=== PATIENT | female | born 1990 | race Two or more races ===

== ENCOUNTER 2018-03-31 01:45 | Emergency (ER) | payer BC, SELFPAY ==
[2018-03-31 01:46] VITALS: BP 133/73; PULSE 93; RESP 20; TEMP 36.7; O2SAT 100; BMI 32.5
--- NOTE | 2018-03-31 02:34 | ED.DCSUM_ITS ---
- ER Visit Summary Date of Service: 03/31/18 Chief Complaint: Vaginal bleeding and 14 weeks History of Present Illness: The patient is a 28 F no senior past medical history. Reportedly approximately 14 weeks . Ab0. Sees an OB/ [employer] [employer] ATTENDANT physician in [place]. States that she did have a pelvic ultrasound at 8 weeks and 1 day and everything looked fine at that time. Tonight she noticed some mild vaginal bleeding. Denies any discharge. No dysuria. No fever. She has not had any bleeding during the entire until today. She states her blood type is AB+. Physical Examination: Well-appearing female vital signs are stable and afebrile. Blood pressure 133/73. H EENT exam unremarkable. Neck nontender. Lungs clear to auscultation bilaterally. Heart regular rate and rhythm no murmur. Abdomen soft and nondistended. Normal bowel sounds. Nontender gravid uterus. No peritoneal signs. Moving all 4 extremities. Calves nontender without edema or cords. Neurologically she is awake and alert with no focal motor deficits. Pelvic exam showed unremarkable external genitalia. On speculum exam there is some old blood that was brown. No active bleeding. No bright red blood. No clots. The office was closed. She had no significant uterine or adnexal tenderness. Female nurse was present during the pelvic exam. Test Results: heart tones of 130. Quantitative hCG of 39,219. ABO Rh blood type of AB+. Emergency Department Course and Treatment: patient at 14 weeks with vaginal bleeding. Treatment Plan: Patient will be discharged. She is instructed to follow-up with her [place] ROLL CARRIER this week. Disposition: Discharge Impression: Acute vaginal bleeding and 14 weeks Threatened miscarriage This note was generated with [employer] dictation software. It may contain incorrect words, spelling, and punctuation that were not noted in review of the chart prior to signing ED Disposition - Plan for ED Patient: Chief Complaint: Vag Bld, Preg Referrals: [facility] Doctor,Out of [NON-STAFF] -
[2018-03-31 04:59] VITALS: BP 94/48; PULSE 89; RESP 16; O2SAT 99
--- NOTE | 2018-03-31 05:20 | DCINST.ED_ITS ---
ED Disposition - Plan for ED Patient: Disposition: Home or Assisted Living Chief Complaint: Vag Bld, Preg Instructions: ED Miscarriage Poss Referrals: [facility] Doctor,Out of [NON-STAFF] - As soon as possible Additional Instructions: Call and follow-up with your [place] [facility]IST[facility] PRODUCE MANAGER as soon as possible. Anytime there is vaginal bleeding with there is a possible concern for a threatened miscarriage. This will need further evaluation. No heavy lifting or sexual intercourse until seen in follow-up.
== END 2018-03-31 05:27 | disposition home or self-care (01) ==
PROVIDERS: Emergency Provider Emergency Medicine
DX: O20.0 Threatened abortion (principal); Z3A.14 14 weeks gestation of pregnancy
CPT/HCPCS: 84702; 86900; 99285; A4216

== ENCOUNTER → 2018-07-13 09:50 | Outpatient (CLI) | payer BC, SELFPAY ==
[2018-07-13 11:19] LABS: Absolute Lymphocyte Count 1.18 X10^3/ul (0.83-4.51); Absolute Neutrophil Count 7.7 X10^3/uL (2.0-7.7); Basophil# 0.01 X10^3/uL; Basophil% 0.1 % (0-1); Eosinophil# 0.07 X10^3/uL; Eosinophils% 0.7 % (0-5); Hematocrit 35.5 % (37-47); Hemoglobin 11.4 g/dl (12.0-15.0); Lymphocyte # 1.18 X10^3/ul (4.0); Lymphocyte % 12.5 % (19-41); Mean Corp Hgb Conc 32.1 g/gl (32-36); Mean Corpuscular Hgb 26.9 pg (27.0-32.0); Mean Corpuscular Volume 83.7 fL (81-99); Mean Platelet Vol. 10.2 fl (6.2-12.0); Monocyte# 0.42 X10^3/uL; Monocyte% 4.4 % (0-10); Neutrophil # 7.72 X10^3/uL (2.7-7.7); Neutrophil % 81.9 % (47-70); Platelet Count 221 K/mm3 (150-450); RBC Distribution Width CV 13.4 % (11.6-14.6); RBC Distribution Width SD 40.3 fl (35.1-43.9); Red Blood Count 4.24 M/mm3 (4.2-5.4); White Blood Count 9.4 K/mm3 (4.4-11.0)
[2018-07-13 11:20] LABS: POSITIVE COUNT NO; POSITIVE DIFFERENTIAL NO; POSITIVE MORPHOLOGY NO
[2018-07-13 11:52] LABS: Glucose Challenge Gest 1H 50g 158 mg/dL (70-140)
== END ==
DX: Z34.02 Encounter for supervision of normal first pregnancy, second trimester (principal)
CPT/HCPCS: 36415; 82950; 85025

== ENCOUNTER → 2018-07-22 09:41 | Outpatient (CLI) | payer BC, SELFPAY ==
[2018-07-22 11:40] LABS: Glucose GTT-Gestational 1 Hr 169 mg/dL (<190)
[2018-07-22 11:42] LABS: Glucose GTT-Gestation. Fasting 85 mg/dL (<105)
[2018-07-22 13:04] LABS: Glucose GTT-Gestational 2 Hr 123 mg/dL (<165)
[2018-07-22 14:27] LABS: Glucose GTT-Gestational 3 Hr 104 L (<145)
== END ==
PROVIDERS: Family Provider Family Medicine; PCP Family Medicine
DX: O99.810 Abnormal glucose complicating pregnancy (principal); Z3A.00 Weeks of gestation of pregnancy not specified
CPT/HCPCS: 36415; 82951; 82952

== ENCOUNTER → 2019-01-09 | Outpatient (CLI) | payer BC, SELFPAY ==
[2019-01-09 17:06] LABS: Bacteria 0 SEEN /hpf (None Seen); Mucous, Urine 0 SEEN /hpf (<or=2+); Red Blood Cells-Urine 0 SEEN /hpf (0-5); Squamous Epithelial Cells - UA 0 SEEN /hpf (5-10); White Blood Cells 0 SEEN /hpf (0-5)
[2019-01-09 18:01] LABS: Color, Urine Yellow (Yellow); Glucose, Dipstick Normal (Normal); Ketone-Dipstick Negative (Negative); Leukocyte Esterase-Dipstick 25 /ul (Negative); Nitrite-Dipstick Negative (Negative); Occult Blood-Urine Negative /ul (Negative); Protein-Dipstick Negative (Negative); Urine Bilirubin Dipstick Negative (Negative); Urine Clarity Clear (Clear); Urine Urobilinogen Normal (Normal)
[2019-01-09 18:10] LABS: Absolute Lymphocyte Count 2.29 X10^3/ul (0.83-4.51); Absolute Neutrophil Count 5.3 X10^3/uL (2.0-7.7); Basophil# 0.02 X10^3/uL; Basophil% 0.2 % (0-1); Eosinophil# 0.05 X10^3/uL; Eosinophils% 0.6 % (0-5); Hematocrit 39.3 % (37-47); Hemoglobin 12.6 g/dl (12.0-15.0); Lymphocyte # 2.29 X10^3/ul (4.0); Lymphocyte % 28.1 % (19-41); Mean Corp Hgb Conc 32.1 g/gl (32-36); Mean Corpuscular Hgb 25.3 pg (27.0-32.0); Mean Corpuscular Volume 78.9 fL (81-99); Mean Platelet Vol. 10.6 fl (6.2-12.0); Monocyte# 0.48 X10^3/uL; Monocyte% 5.9 % (0-10); Neutrophil # 5.29 X10^3/uL (2.7-7.7); Neutrophil % 65.1 % (47-70); Platelet Count 280 K/mm3 (150-450); RBC Distribution Width CV 14.4 % (11.6-14.6); RBC Distribution Width SD 40.3 fl (35.1-43.9); Red Blood Count 4.98 M/mm3 (4.2-5.4); White Blood Count 8.1 K/mm3 (4.4-11.0)
[2019-01-09 18:11] LABS: POSITIVE COUNT NO; POSITIVE DIFFERENTIAL NO; POSITIVE MORPHOLOGY NO
[2019-01-09 18:45] LABS: Anion Gap 6 (5-15); BUN 13 mg/dL (7-18); BUN/Creat Ratio 14.7 RATIO (10-20); Calcium,Total 8.5 mg/dL (8.5-10.1); Chloride 106 mmol/L (98-107); Creatinine, Serum 0.88 mg/dL (0.55-1.02); EST Glomerular Filtration Rate 80 mL/min (>60); Est Glom Filt Rate - Afr Amer 97 mL/min (>60); Ferritin 15 ng/mL (8-252); Glucose 90 mg/dL (74-106); Iron 52 ug/dL (50-170); Iron Binding Capacity,Total 382 ug/dL (250-450); Potassium 3.9 mmol/L (3.5-5.1); Sodium Level 136 mmol/L (136-145)
== END | disposition home or self-care (01) ==
PROVIDERS: Family Provider Family Medicine; PCP Family Medicine; Referring Provider Family Medicine; Visit Provider Family Medicine
DX: O13.9 Gestational [pregnancy-induced] hypertension without significant proteinuria, unspecified trimester (principal); D64.9 Anemia, unspecified
CPT/HCPCS: 80048; 81001; 82728; 83540; 83550; 85025

== ENCOUNTER → 2019-08-08 12:23 | Outpatient (CLI) | payer BC, SELFPAY ==
[2019-08-08 13:50] LABS: Absolute Lymphocyte Count 2.18 X10^3/uL (0.83-4.51); Absolute Neutrophil Count 5.8 X10^3/uL (2.0-7.7); Basophil# 0.02 X10^3/uL; Basophil% 0.2 % (0-1); Eosinophil# 0.15 X10^3/uL; Eosinophils% 1.7 % (0-5); Hematocrit 43.3 % (37-47); Hemoglobin 13.9 g/dL (12.0-15.0); Lymphocyte # 2.18 X10^3/ul (4.0); Lymphocyte % 25.4 % (19-41); Mean Corp Hgb Conc 32.1 g/dL (32-36); Mean Corpuscular Hgb 26.5 pg (27.0-32.0); Mean Corpuscular Volume 82.5 fL (81-99); Mean Platelet Vol. 10.2 fl (6.2-12.0); Monocyte# 0.46 X10^3/uL; Monocyte% 5.4 % (0-10); NRBC Flagged by Analyzer 0 % (0-5); Neutrophil # 5.75 X10^3/uL (2.7-7.7); Platelet Count 265 K/mm3 (150-450); RBC Distribution Width CV 13.4 % (11.6-14.6); RBC Distribution Width SD 39.8 fl (35.1-43.9); Red Blood Count 5.25 M/mm3 (4.2-5.4); White Blood Count 8.6 K/mm3 (4.4-11.0)
[2019-08-08 14:38] LABS: ALB/GLOB Ratio 0.9 RATIO (0.9-2.4); AST(SGOT) 13 U/L (15-37); Alanine Aminotransfer ALT/SGPT 40 U/L (13-56); Alkaline Phosphatase 111 U/L (45-117); Anion Gap 8 (5-15); BUN 14 mg/dL (7-18); BUN/Creat Ratio 16.6 RATIO (10-20); Calcium,Total 9.2 mg/dL (8.5-10.1); Chloride 106 mmol/L (98-107); Creatinine, Serum 0.84 mg/dL (0.55-1.02); EST Glomerular Filtration Rate 84 mL/min (>60); Est Glom Filt Rate - Afr Amer 102 mL/min (>60); Globulin 4.3 g/dL (2.2-4.2); Glucose 108 mg/dL (74-106); Magnesium 2.1 mg/dL (1.6-2.6); Protein, Total 8.3 g/dL (6.4-8.2); Sodium Level 139 mmol/L (136-145); Thyroid Stim Hormone (TSH) 0.96 uIU/mL (0.358-3.74)
[2019-08-11 18:12] LABS: Hemoglobin A1c 5.7 % (4.2-6.3)
== END ==
PROVIDERS: Family Provider Family Medicine; PCP Family Medicine; Referring Provider Family Medicine; Visit Provider Family Medicine
DX: R73.09 Other abnormal glucose (principal); R00.2 Palpitations
CPT/HCPCS: 36415; 80053; 83036; 83735; 84443; 85025

== ENCOUNTER 2019-08-25 19:51 | Emergency (ER) | payer BC, SELFPAY ==
[2019-08-18 10:58] VITALS: BMI 33.5
[2019-08-25 19:52] VITALS: BP 129/83; PULSE 87; RESP 16; TEMP 36.6; O2SAT 99; BMI 33.6
[2019-08-25 20:00] VITALS: PULSE 97; RESP 18; O2SAT 100
--- NOTE | 2019-08-25 20:04 | ED.RN ---
NO OLD EKGS IN MUSE
--- NOTE | 2019-08-25 20:10 | RAD_ITS ---
STUDY: X-RAY CHEST REASON FOR EXAM: Female, 29 years old. chest pain TECHNIQUE: Single AP portable view of the chest. COMPARISON: None. FINDINGS: The lungs are clear and expanded. There is no demonstrated pleural abnormality. Normal size heart. Normal mediastinum and andrea. Normal visualized pulmonary arteries. Normal visualized aortic arch and descending thoracic aorta. Normal visualized thoracic spine. Normal visualized ribs, clavicles, and shoulders. There is no demonstrated abnormality of the visualized soft tissue structures of the upper abdomen. RAD/Chest 1 View (Portable) IMPRESSION: Normal x-ray examination of the chest. Electronically Signed: Julio Carlton MD at 20:31 EST Tel [phone], Service support ,
--- NOTE | 2019-08-25 20:10 | EKG12_ITS ---
Test Reason : CP Blood Pressure : / mmHG Vent. Rate : 097 BPM Atrial Rate : 097 BPM P-R Int : 130 ms QRS Dur : 082 ms QT Int : 356 ms P-R-T Axes : 037 036 023 degrees QTc Int : 452 ms Normal sinus rhythm Normal ECG Confirmed by VAL PARRA MD ([id number]), map editor CEASAR ANTUNEZ ([id number]) on 08/28/2019 9:32:19 AM Referred By: DONALDO Confirmed By:VAL PARRA MD
[2019-08-25 20:19] LABS: Absolute Lymphocyte Count 1.97 X10^3/uL (0.83-4.51); Absolute Neutrophil Count 9.5 X10^3/uL (2.0-7.7); Basophil# 0.04 X10^3/uL; Basophil% 0.3 % (0-1); Eosinophil# 0.05 X10^3/uL; Eosinophils% 0.4 % (0-5); Hematocrit 41.8 % (37-47); Hemoglobin 13.6 g/dL (12.0-15.0); Lymphocyte # 1.97 X10^3/ul (4.0); Lymphocyte % 16.4 % (19-41); Mean Corp Hgb Conc 32.5 g/dL (32-36); Mean Corpuscular Hgb 26.7 pg (27.0-32.0); Mean Platelet Vol. 10.3 fl (6.2-12.0); Monocyte# 0.46 X10^3/uL; Monocyte% 3.8 % (0-10); NRBC Flagged by Analyzer 0 % (0-5); Neutrophil # 9.45 X10^3/uL (2.7-7.7); Neutrophil % 78.7 % (47-70); Platelet Count 282 K/mm3 (150-450); RBC Distribution Width CV 12.8 % (11.6-14.6); RBC Distribution Width SD 38.3 fl (35.1-43.9)
[2019-08-25] MEDS: Aspirin 81 MG TAB.CHEW 324 MG PO (20:31)
[2019-08-25 20:32] LABS: Anion Gap 6 (5-15); BUN 13 mg/dL (7-18); BUN/Creat Ratio 14.1 RATIO (10-20); Chloride 105 mmol/L (98-107); Creatinine, Serum 0.92 mg/dL (0.55-1.02); EST Glomerular Filtration Rate 76 mL/min (>60); Est Glom Filt Rate - Afr Amer 92 mL/min (>60); Estimated Creatinine Clearance 70.72 ml/min; Glucose 139 mg/dL (74-106); Potassium 3.7 mmol/L (3.5-5.1); Sodium Level 138 mmol/L (136-145)
[2019-08-25] MEDS: 0.9% Normal Saline 1,000 ML 150 ML IV (20:40)
[2019-08-25 20:50] LABS: D-Dimer Quantitative (DVT/PE) 0.73 FEU/ug/m (0.27-0.49)
--- NOTE | 2019-08-25 20:51 | CT_ITS ---
STUDY: CTA CHEST REASON FOR EXAM: Female, 29 years old. CHEST PRESSURE, SOB SINCE LAST NIGHT, PALPITATIONS, TACHYCARDIA. RADIATION DOSAGE (If Supplied By Facility): CTDIvol = ( 10.29 ) mGy, DLP = ( 455.45 ) mGycm TECHNIQUE: The examination was performed with the intravenous administration of 100 ML ISOVUE 370. Post-processing of the angiographic images was performed, with multiplanar reformation and 3D reconstruction. Individualized dose optimization techniques were used for this CT. COMPARISON: Portable chest August 25, 2019 FINDINGS: Normal enhancement of the main pulmonary artery and right and left pulmonary arteries. Normal enhancement of the bilateral peripheral pulmonary arteries. There is no demonstrated pulmonary embolism. Normal thoracic aorta and visualized great vessels. There is no demonstrated aortic dissection. Normal heart and pericardium. Normal mediastinum. Normal hilar regions. Normal visualized trachea and bronchi. The lungs are well expanded. Normal pulmonary parenchyma. Normal pleura. Normal chest wall structures. Normal osseous structures. Normal visualized upper abdomen. CT/CTA Chest W/WO Contrast IMPRESSION: Normal CTA chest examination, without a demonstrated pulmonary embolism or arterial dissection. Electronically Signed: David Disla MD at 21:24 EST , Service support ,
--- NOTE | 2019-08-25 21:48 | ED.DCSUM_ITS ---
- ER Visit Summary Date of Service: 08/25/19 Chief Complaint: [Chest pain] History of Present Illness: The patient is a 29 F presents to the emergency department discomfort that started around noon today. Patient describes a pressure goes across her shoulders. Patient just feels like she can get a full breath. Patient feels like there are some stuck in her throat at times. Patient currently being evaluated for some palpitations and is scheduled to have a Holter monitor placed tomorrow. Patient is scheduled for stress test and an echo on August 28. Patient denies recent travel or surgery. Patient did deliver a baby 11 months ago via . She has had a cold for about 2 weeks but feels like it is gotten much better. Patient's father of an RI at age 65.] Physical Examination: [HEENT-PERRLA, EOMI. Cranial nerves II through XII grossly intact. TMs clear. Mucous membranes moist. No adenopathy. Cardiovascular-regular rate and rhythm without murmur or ectopy Lungs-clear to auscultation, chest wall stable without crepitus or subcu emphysema Abdomen-normoactive bowel sounds, soft, nontender, no rebound or rigidity, no peritoneal signs. Extremities-intact ?4, normal range of motion, normal pulses, atraumatic] Test Results: [EKG obtained showed a sinus rhythm with a ventricular rate of 97 bpm with no acute ST segment changes. CBC with differential showed a white count 12.0, hemoglobin 13.6, hematocrit 42, platelets 282. Chemistries unremarkable. Troponin is less than 0.15. Chest x-ray was normal. CTA of the chest obtained after an elevated d-dimer was negative for PE or dissection.] Emergency Department Course and Treatment: [Patient received fused any and high anxiety medication in the emergency department. On arrival she was placed on a automobile repossessor and given normal saline.] Treatment Plan: [For further discussion with patient it was decided that she would try PRN Ativan. Her hesitation was that she is still nursing the child at night. Patient was advised not to nurse and to pump and dump for 12 hours after taking the Ativan.] I suspect some of her symptoms may be anxiety related. Patient to keep her appointments with cardiology for all the further testing to be performed. I do not feel patient is having an acute coronary syndrome. Disposition: [Discharged home in stable condition.] Impression: [Chest pain-etiology uncertain] This note was generated with [employer] dictation software. It may contain incorrect words, spelling, and punctuation that were not noted in review of the chart prior to signing ED Disposition - Plan for ED Patient: Referrals: Cong Zaragoza MD [Primary Care Provider] -
--- NOTE | 2019-08-25 21:56 | ED.DEP ---
ED Disposition - Plan for ED Patient: Instructions: CHEST PAIN, Uncertain Cause Prescriptions: Lorazepam [Ativan] 1 mg PO TID PRN #10 tab PRN Reason: Anxiety Prescription Printed Referrals: Cong Zaragoza MD [Primary Care Provider] - 3-5 Days
[2019-08-25 22:09] VITALS: BP 113/71; PULSE 91; RESP 17; O2SAT 99
== END 2019-08-25 22:11 | disposition home or self-care (01) ==
LOC: ED 20:20
PROVIDERS: Emergency Provider Emergency Medicine; Family Provider Family Medicine; PCP Family Medicine
DX: R07.9 Chest pain, unspecified (principal); R00.2 Palpitations
CPT/HCPCS: 71045; 71275; 80048; 84484; 85025; 85379; 93005; 96360; 99285; J7030; Q9967; A4216

== ENCOUNTER → 2019-08-28 12:12 | Outpatient (CLI) | payer BC, SELFPAY ==
[2019-08-18 10:58] VITALS: BMI 33.5
[2019-08-25 19:52] VITALS: BMI 33.6
--- NOTE | 2019-08-28 12:12 | ECHOD_ITS ---
Reason For Study: Palps, chest pain Procedure This was a 2D Doppler, Color Flow transthoracic echocardiogram. The study was technically difficult. Exam performed in department. Left Ventricle Normal size and thickness. The estimated ejection fraction is 60 %. No evidence for diastolic dysfunction. No regional wall motion abnormalities noted. Right Ventricle Normal RV size. Normal systolic function. Atria Normal left atrium. Normal right atrium. No doppler evidence for ASD. Mitral Valve There is no mitral valve stenosis. No mitral valve insufficiency. Tricuspid Valve There is no tricuspid stenosis. Unable to estimate RV systolic pressure due to insufficient tricuspid regurgitant envelope. Trivial tricuspid valve insufficiency. Aortic Valve Trisinus/trileaflet aortic valve. There is no aortic stenosis. No aortic valve insufficiency. Pulmonic Valve There is no pulmonic valvular stenosis. No pulmonic valve insufficiency. Great Vessels Normal aortic root. Pericardium/Pleural No pericardial effusion. Medication Definity deferred due to patient breast feeding. MMode/2D Measurements & Calculations LVIDd: 3.7 cm IVSd: 0.84 cm Ao root diam: 2.6 cm LVIDs: 2.1 cm LVPWd: 0.87 cm RVDd: 2.6 cm FS: 41.8 % LAV(MOD-bp): 19.7 ml LA A4 area: 9.3 cm2 LA dimension(2D): 3.2 cm LAV(MOD-bp) Indexed: 10.7 ml/m2 LAV(MOD-sp2): 21.2 ml LAV(MOD-sp4): 18.1 ml RA A4 area: 8.9 cm2 Doppler Measurements & Calculations MV E max david: 66.9 cm/sec Lat Peak E' David: 14.2 cm/sec Med Peak E' David: 8.3 cm/sec MV A max david: 77.7 cm/sec E/E' lat: 4.7 E/E' med: 8.1 MV E/A: 0.86 Ao V2 max: 122.8 cm/sec LV V1 max: 109.9 cm/sec PA V2 max: 95.6 cm/sec Ao max P.0 mmHg LV V1 max P.8 mmHg Interpretation Summary The estimated ejection fraction is 60 %. No evidence for diastolic dysfunction. Trivial tricuspid valve insufficiency. Ordering Physician: Ran Prasad Referring Physician: Cong Zaragoza Performed By: Kristin Alba RDCS
--- NOTE | 2019-08-28 18:37 | STRESSREP ---
Stress Test Report Date: 08/28/2019 Procedure: Exercise tolerance test Indications: Chest pain, palpitations Consent: Per the patient Procedure: The patient exercised on a Raymond protocol for 5 minutes and 35 seconds achieving a peak heart rate of 179 bpm (94 % predicted maximal heart rate) with a peak blood pressure 142/60 mmHg and a peak MET capacity of approximately 7 mET's. The baseline ECG demonstrated normal sinus rhythm. The peak exercise ECG demonstrated sinus tachycardia with no significant ST-T changes. [There were no cardiac dysrhythmias pretest, during exercise, or recovery]. The functional capacity was considered decreased for age. The patient had no complaint of chest discomfort during exercise or recovery. The examination was discontinued secondary to dyspnea. Impression: 1. Technically adequate (percent predicted maximal heart rate greater than 85%) exercise tolerance test 2. Stress test is negative for exercise-induced chest pain. 3. Stress test test is negative for exercise-induced EKG changes of ischemia. 4. Functional capacity is decreased for age This note was generated with [employer] software. It may contain incorrect words, spelling, and punctuation that were not noted in checking the note before signing.
--- NOTE | 2019-08-28 18:41 | STRESSREP ---
Stress Test Report Date: 08/28/2019 Procedure: Exercise tolerance test Indications: Chest pain Consent: Per the patient Procedure: The patient exercised on a Raymond protocol for 9 minutes achieving a peak heart rate of 162 bpm (98 % predicted maximal heart rate) with a peak blood pressure 172/84 mmHg and a peak MET capacity of approximately 10.4 mET's. The baseline ECG demonstrated normal sinus rhythm. The peak exercise ECG demonstrated sinus tachycardia with no significant ST-T changes diagnostic of significant ischemia. [There were no cardiac dysrhythmias pretest, during exercise, or recovery]. The functional capacity was considered excellent for age. The patient had no complaint of chest discomfort during exercise or recovery. The examination was discontinued secondary to reaching target heart rate. Impression: 1. Technically adequate (percent predicted maximal heart rate greater than 85%) exercise tolerance test 2. Stress test is negative for exercise-induced chest pain. 3. Stress test test is negative for exercise-induced EKG changes of ischemia. 4. Functional capacity is excellent for age This note was generated with [employer] software. It may contain incorrect words, spelling, and punctuation that were not noted in checking the note before signing.
== END ==
PROVIDERS: Family Provider Family Medicine; PCP Family Medicine; Referring Provider Specialist; Visit Provider Specialist
DX: R00.2 Palpitations (principal); R07.9 Chest pain, unspecified
CPT/HCPCS: 93017; 93225; 93226; 93306

== ENCOUNTER → 2019-09-16 12:17 | Outpatient (CLI) | payer BC, SELFPAY ==
[2019-09-15 11:13] VITALS: BMI 32.1
[2019-09-16 13:51] LABS: Cholesterol 167 mg/dL (200); High Density Lipoprotein 34 mg/dL; Triglycerides 110 mg/dL; Very Low Density Lipoprotein 22 mg/dL (5-40)
== END ==
PROVIDERS: Family Provider Family Medicine; PCP Family Medicine; Referring Provider Specialist; Visit Provider Specialist
DX: R07.9 Chest pain, unspecified (principal); R06.02 Shortness of breath; R07.89 Other chest pain; R00.2 Palpitations
CPT/HCPCS: 36415; 80061

== ENCOUNTER → 2019-09-25 13:23 | Outpatient (CLI) | payer BC, SELFPAY ==
[2019-09-15 11:13] VITALS: BMI 32.1
--- NOTE | 2019-09-25 13:24 | CT_ITS ---
STUDY: CARDIAC CALCIUM SCORING - CT CHEST CT HEART CARDIAC STRUCTURE AND MORPHOLOGY WITH CONTRAST REASON FOR EXAM: Female, 29 years old. Chest pain, with exercise. Abnormal stress test. 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 RADIATION DOSAGE (If Supplied By Facility): DLP = ( 852.49 ) mGycm TECHNIQUE: Axial non-enhanced images were acquired through the heart for the sole purpose of measuring coronary artery calcium. After injection of 50 mL Isovue-300 IV contrast, gated thin slice transaxial CT angiogram of the heart was performed, with 3-D volume rendered reformatted images saved to the PACS archive. Individualized dose optimization techniques were used for this CT. COMPARISON: None. FINDINGS: CHEST OVERVIEW: Upper abdomen: No acute process. Body wall soft tissues: No acute process. Osseous structures: Slight scoliosis, minimal spondylosis, no acute process. Mediastinum: Normal esophagus. No mediastinal mass or lymphadenopathy. No hilar lymphadenopathy. Minimal residual thymic material in anterior mediastinum, age-appropriate. Lungs: Normal. Aorta: Normal. Pulmonary arteries: Normal. IVC and SVC: Normal. There are 2 right and 2 left pulmonary veins flowing into a nondilated left atrium with no appendage thrombus. HEART: No pericardial effusion. No cardiomegaly. Normal four-chamber cardiac morphology. Normal appearing interatrial and intraventricular septum. The ventricles exhibit normal wall thickness, normal myocardial density characteristics, normal trabeculation pattern, normal outflow tracts. CORONARY ARTERIES: The right and left coronary arteries each emerge from the appropriate coronary sinus with right coronary dominance to the PDA. There is conventional coronary artery branching anatomy without anomalous vessels. There is no visible calcified or soft atheroma, no visible luminal narrowing of the vessels. IMPRESSION: The coronary calcium score is reported under separate cover with cardiology. Please see that report. Normal cardiac chamber morphology. Normal coronary artery branching anatomy with no evidence of atherosclerotic disease, no suspected stenosis. No other significant thoracic pathology is evident. Electronically Signed: Lloyd Rubio MD at 9:13 EST Tel , Service support , STUDY: CARDIAC CALCIUM SCORING - CT CHEST CT HEART CARDIAC STRUCTURE AND MORPHOLOGY WITH CONTRAST REASON FOR EXAM: Female, 29 years old. Chest pain, with exercise. Abnormal stress test. 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 RADIATION DOSAGE (If Supplied By Facility): DLP = ( 852.49 ) mGycm TECHNIQUE: Axial non-enhanced images were acquired through the heart for the sole purpose of measuring coronary artery calcium. After injection of 50 mL Isovue-300 IV contrast, gated thin slice transaxial CT angiogram of the heart was performed, with 3-D volume rendered reformatted images saved to the PACS archive. Individualized dose optimization techniques were used for this CT. COMPARISON: None. FINDINGS: CHEST OVERVIEW: Upper abdomen: No acute process. Body wall soft tissues: No acute process. Osseous structures: Slight scoliosis, minimal spondylosis, no acute process. Mediastinum: Normal esophagus. No mediastinal mass or lymphadenopathy. No hilar lymphadenopathy. Minimal residual thymic material in anterior mediastinum, age-appropriate. Lungs: Normal. Aorta: Normal. Pulmonary arteries: Normal. IVC and SVC: Normal. There are 2 right and 2 left pulmonary veins flowing into a nondilated left atrium with no appendage thrombus. HEART: No pericardial effusion. No cardiomegaly. Normal four-chamber cardiac morphology. Normal appearing interatrial and intraventricular septum. The ventricles exhibit normal wall thickness, normal myocardial density characteristics, normal trabeculation pattern, normal outflow tracts. CORONARY ARTERIES: The right and left coronary arteries each emerge from the appropriate coronary sinus with right coronary dominance to the PDA. There is conventional coronary artery branching anatomy without anomalous vessels. There is no visible calcified or soft atheroma, no visible luminal narrowing of the vessels. CT/Limited Chest CT w/CCTA IMPRESSION: The coronary calcium score is reported under separate cover with cardiology. Please see that report. Normal cardiac chamber morphology. Normal coronary artery branching anatomy with no evidence of atherosclerotic disease, no suspected stenosis. No other significant thoracic pathology is evident. Electronically Signed: Lloyd Rubio MD at 9:14 EST Tel , Service support ,
[2019-09-25 13:36] VITALS: BP 115/59; PULSE 72; RESP 16; O2SAT 98; BMI 31.6
[2019-09-25 14:00] VITALS: BP 115/59; PULSE 72
[2019-09-25] MEDS: Nitroglycerin SL (ED/IMG/CATH) 0.4 MG TABLET SUBLINGUAL (14:00)
[2019-09-25 14:06] VITALS: BP 100/58; PULSE 72; RESP 16; O2SAT 97
--- NOTE | 2019-09-26 18:08 | CCTA.WCONT ---
CCTA w/Cont Coronary Arteries Date of Study:: 09/25/19 Atypical chest pain. High-resolution computed tomographic imaging of the chest was performed on 09/25/2019. Particular attention was paid to the coronary arteries.. The patient had undergone preparation with oral beta-brenda and was also administered sublingual nitroglycerin. 100 cc of non-iodinated contrast was administered with appropriate timing boluses and segments. The images were reconstructed and compared and appropriate ECG gating was also obtained. Study comments: Study quality excellent Mean heart rate 61 bpm. Findings: The coronary calcium score was noted to be 0. Coronary anatomy: The right coronary artery was a dominant vessel arising from the right coronary cusp. It gave off a large acute right marginal branch and it continued as a normal caliber vessel bifurcating into a small PDA and posterolateral vessel. No plaque was noted within this vessel. Left main coronary artery: The left main coronary artery arose from the left coronary cusp and bifurcating to the left anterior descending artery and left circumflex artery. No significant plaquing was noted within this vessel. Left anterior descending artery: The left anterior descending artery was a good caliber vessel. It gave off a first septal rocket engine tester, a large diagonal branch which further subdivided. The mid left anterior descending artery continued towards the apex of the ventricle. No significant atherosclerotic plaquing was noted in this vessel. Left circumflex artery: The left circumflex artery was a nondominant but medium caliber vessel giving of at least 1 well-visualized obtuse marginal vessel with no significant plaquing noted. Additional cardiac findings: Normal-sized aortic root with a trileaflet aortic valve LEFT MAIN CORONARY ARTERY: Normal and arising from the left coronary cusp [] LEFT ANTERIOR DESCENDING CORONARY ARTERY: No significant stenosis noted [] LEFT CIRCUMFLEX CORONARY ARTERY: No significant stenosis noted [] RIGHT CORONARY ARTERY: No significant stenosis noted, and arising from the right coronary cusp [] THORACIC AORTA: Normal dimensions [] PULMONARY ARTERY: Normal dimensions [] LEFT ATRIUM/APPENDAGE: No thrombus noted [] MITRAL VALVE: Structurally normal [] AORTIC VALVE: Trileaflet and normal [] LEFT VENTRICLE: Normal ventricular size [] CORONARY CALCIUM SCORE: 0 [] Conclusion: Normal CT angiogram
== END ==
PROVIDERS: Family Provider Family Medicine; PCP Family Medicine; Referring Provider Specialist; Visit Provider Specialist
DX: R07.9 Chest pain, unspecified (principal)
CPT/HCPCS: 75571; 75574; 76380; Q9967

== ENCOUNTER → 2020-06-23 | Outpatient (CLI) | payer BC, SELFPAY ==
[2019-10-28 14:31] VITALS: BMI 31.8
== END | disposition home or self-care (01) ==
PROVIDERS: PCP Family Medicine; Referring Provider Family Medicine; Visit Provider Family Medicine
DX: B34.9 Viral infection, unspecified (principal)
CPT/HCPCS: 87635; U0003

== ENCOUNTER → 2020-08-12 08:20 | Outpatient (CLI) | payer BC, SELFPAY ==
[2019-10-28 14:31] VITALS: BMI 31.8
[2020-08-12 10:23] LABS: Absolute Neutrophil Count 4.1 X10^3/uL (2.0-7.7); Basophil# 0.03 X10^3/uL; Basophil% 0.5 % (0-1); Eosinophil# 0.08 X10^3/uL; Eosinophils% 1.3 % (0-5); Hematocrit 41.2 % (37-47); Hemoglobin 13.7 g/dL (12.0-15.0); Lymphocyte % 28.2 % (19-41); Mean Corp Hgb Conc 33.3 g/dL (32-36); Mean Corpuscular Hgb 27.7 pg (27.0-32.0); Mean Corpuscular Volume 83.2 fL (81-99); Mean Platelet Vol. 10.4 fl (6.2-12.0); Monocyte# 0.37 X10^3/uL; Monocyte% 5.8 % (0-10); NRBC Flagged by Analyzer 0 % (0-5); Neutrophil # 4.09 X10^3/uL (2.7-7.7); Neutrophil % 63.9 % (47-70); Platelet Count 275 K/mm3 (150-450); RBC Distribution Width CV 12.8 % (11.6-14.6); RBC Distribution Width SD 38.4 fl (35.1-43.9); Red Blood Count 4.95 M/mm3 (4.2-5.4); White Blood Count 6.4 K/mm3 (4.4-11.0)
[2020-08-12 10:56] LABS: AST(SGOT) 27 U/L (15-37); Alanine Aminotransfer ALT/SGPT 62 U/L (13-56); Albumin, Serum 3.8 g/dL (3.2-5.0); Alkaline Phosphatase 86 U/L (45-117); Anion Gap 6 (5-15); BUN 15 mg/dL (7-18); BUN/Creat Ratio 21.5 RATIO (10-20); Calcium,Total 8.6 mg/dL (8.5-10.1); Chloride 106 mmol/L (98-107); EST Glomerular Filtration Rate 104 mL/min (>60); Est Glom Filt Rate - Afr Amer 125 mL/min (>60); Globulin 3.8 g/dL (2.2-4.2); Glucose 104 mg/dL (74-106); Potassium 4.1 mmol/L (3.5-5.1); Protein, Total 7.6 g/dL (6.4-8.2); Sodium Level 138 mmol/L (136-145); T4 Free Direct 1.09 ng/dL (0.76-1.46); Thyroid Stim Hormone (TSH) 2.12 uIU/mL (0.358-3.74)
[2020-08-14 11:45] LABS: Anti-Thyroglobulin AB < 1.0 IU/mL (0.0-0.9); Thyroglobulin, Serum Qt. 2.7 ng/mL (1.5-38.5); Thyroid Peroxidase AB < 9 IU/mL (0-34)
== END ==
PROVIDERS: PCP Family Medicine; Referring Provider Family Medicine; Visit Provider Family Medicine
DX: R63.5 Abnormal weight gain (principal); E01.0 Iodine-deficiency related diffuse (endemic) goiter
CPT/HCPCS: 36415; 80053; 84432; 84439; 84443; 85025; 86376; 86800

== ENCOUNTER → 2020-08-16 07:23 | Outpatient (CLI) | payer BC, SELFPAY ==
[2019-10-28 14:31] VITALS: BMI 31.8
--- NOTE | 2020-08-16 07:25 | US_ITS ---
STUDY: THYROID ULTRASOUND REASON FOR EXAM: Female, 30 years old. Thyromegaly felt by doctor TECHNIQUE: Ultrasound evaluation of the thyroid was performed with real-time and static fay-scale imaging. COMPARISON: None. FINDINGS: RIGHT LOBE: The right lobe of the thyroid gland is mildly enlarged and measures 5.3 cm x 1.6 cm x 1.4 cm. There is a homogeneous echotexture. There is a 5 mm x 3 mm x 3 mm cyst in the upper pole of the right lobe. There is also evidence of a 3 mm x 2 mm x 2 mm cyst in the lower pole. LEFT LOBE: The left lobe of the thyroid gland measures 4.8 cm x 1.4 cm x 1.1 cm. There is a homogeneous echotexture. There are no demonstrated solid, cystic or complex lesions. ISTHMUS: The isthmus measures 4 mm. The regional lymph nodes are normal. US/Thyroid IMPRESSION: 2 subcentimeter cysts are seen in the right lobe of the thyroid. Enlargement of the right lobe of the thyroid. Electronically Signed: Cleveland Tran, at 13:13 EST , Service support ,
== END ==
PROVIDERS: PCP Family Medicine; Referring Provider Family Medicine; Visit Provider Family Medicine
DX: E01.0 Iodine-deficiency related diffuse (endemic) goiter (principal)
CPT/HCPCS: 76536

== ENCOUNTER → 2020-11-12 16:11 | Outpatient (CLI) | payer BC, SELFPAY ==
[2020-11-02 11:21] VITALS: BMI 31.1
[2020-11-12 17:53] LABS: Rheumatoid Factor < 10.0 IU/mL (<15)
[2020-11-12 17:54] LABS: Vitamin B12 818 pg/mL (211-911); Vitamin D,25 Hydroxy 19.8 ng/mL
[2020-11-12 18:00] LABS: Erythrocyte Sedimentation Rate 19 mm/hr (0-30)
[2020-11-12 18:14] LABS: Hemoglobin A1c 5.4 % (3.8-5.6)
[2020-11-15 16:45] LABS: ANTINUCLEAR ANTIBODIES DIRECT Negative (Negative)
== END ==
PROVIDERS: PCP Family Medicine; Referring Provider Family Medicine; Visit Provider Family Medicine
DX: R73.02 Impaired glucose tolerance (oral) (principal); M25.50 Pain in unspecified joint; R53.83 Other fatigue
CPT/HCPCS: 36415; 82306; 82607; 83036; 85652; 86038; 86431

== ENCOUNTER → 2021-06-15 11:36 | Outpatient (CLI) | payer BC, SELFPAY ==
[2021-06-15 15:38] LABS: Vitamin D,25 Hydroxy 23.1 ng/mL
== END ==
PROVIDERS: PCP Family Medicine; Referring Provider Family Medicine; Visit Provider Family Medicine
DX: E55.9 Vitamin D deficiency, unspecified (principal)
CPT/HCPCS: 36415; 82306

== ENCOUNTER → 2021-06-29 15:30 | Outpatient (CLI) | payer BC, SELFPAY ==
[2021-06-29 18:30] LABS: T4 Free Direct 1.03 ng/dL (0.76-1.46); Thyroid Stim Hormone (TSH) 0.97 uIU/mL (0.358-3.74)
[2021-07-02 07:07] LABS: Thyroid Stim Immunoglob <0.10 IU/L (0.00-0.55)
[2021-07-02 07:39] LABS: Anti-Thyroglobulin AB < 1.0 IU/mL (0.0-0.9); Thyroglobulin, Serum Qt. 2.6 ng/mL (1.5-38.5); Thyroid Peroxidase AB < 8 IU/mL (0-34)
== END ==
PROVIDERS: PCP Family Medicine; Referring Provider Family Medicine; Visit Provider Family Medicine
DX: E01.0 Iodine-deficiency related diffuse (endemic) goiter (principal)
CPT/HCPCS: 36415; 84432; 84439; 84443; 84445; 86376; 86800

== ENCOUNTER → 2021-07-05 14:26 | Outpatient (CLI) | payer BC, SELFPAY ==
--- NOTE | 2021-07-05 14:36 | US_ITS ---
STUDY: THYROID ULTRASOUND REASON FOR EXAM: Female, 31 years old. THYROMEGALY TECHNIQUE: Ultrasound evaluation of the thyroid was performed with real-time and static fay-scale imaging. COMPARISON: Comparison is made with prior study dated 08/16/2020. FINDINGS: RIGHT LOBE: The right lobe of the thyroid gland is slightly enlarged and measures 5.2 cm x 1.7 cm x 1.4 cm. There is a homogeneous echotexture. There is a 4 mm x 3 mm x 3 mm well-defined cystic nodule in the upper and lower poles. There is also evidence of a 3 mm x 3 mm x 3 mm cyst in the lower pole. These are unchanged. LEFT LOBE: The left lobe of the thyroid gland measures 4.4 cm x 1.3 cm x 1.3 cm. There is a homogeneous echotexture. There is a 2 mm x 2 mm x 2 mm cyst in the midpole. ISTHMUS: The isthmus measures 4 mm. The regional lymph nodes are normal. US/Thyroid IMPRESSION: Small bilateral cysts seen in both lobes. Electronically Signed: Cleveland Tran MD at 15:36 EDT , Service support ,
== END ==
PROVIDERS: PCP Family Medicine; Referring Provider Family Medicine; Visit Provider Family Medicine
DX: E01.0 Iodine-deficiency related diffuse (endemic) goiter (principal)
CPT/HCPCS: 76536

== ENCOUNTER 2021-10-27 16:20 | Outpatient (CLI) | payer BC, SELFPAY ==
[2021-10-27 18:51] LABS: Vitamin D,25 Hydroxy 55.2 ng/mL
[2021-10-27 19:01] LABS: AST(SGOT) 22 U/L (15-37); Alanine Aminotransfer ALT/SGPT 56 U/L (13-56); Alkaline Phosphatase 100 U/L (45-117); Anion Gap 6 (5-15); BUN 11 mg/dL (7-18); BUN/Creat Ratio 14.4 RATIO (10-20); Calcium,Total 8.9 mg/dL (8.5-10.1); Chloride 106 mmol/L (98-107); Creatinine, Serum 0.77 mg/dL (0.55-1.02); EST Glomerular Filtration Rate 93 mL/min (>60); Est Glom Filt Rate - Afr Amer 112 mL/min (>60); Globulin 4.2 g/dL (2.2-4.2); Glucose 90 mg/dL (74-106); Potassium 3.8 mmol/L (3.5-5.1); Protein, Total 8.2 g/dL (6.4-8.2); Sodium Level 137 mmol/L (136-145); T4 Free Direct 1.34 ng/dL (0.76-1.46); Thyroid Stim Hormone (TSH) 1.25 uIU/mL (0.358-3.74)
== END 2021-10-27 23:59 | disposition home or self-care (01) ==
LOC: MFPLAB 16:23
PROVIDERS: PCP Family Medicine; Referring Provider Family Medicine; Visit Provider Family Medicine
DX: E01.0 Iodine-deficiency related diffuse (endemic) goiter (principal); E55.9 Vitamin D deficiency, unspecified
CPT/HCPCS: 36415; 80053; 82306; 84439; 84443

== ENCOUNTER → 2022-01-25 | Outpatient (CLI) | payer BC, SELFPAY ==
[2022-01-25 18:04] LABS: AST(SGOT) 17 U/L (15-37); Alanine Aminotransfer ALT/SGPT 47 U/L (13-56); Alkaline Phosphatase 89 U/L (45-117); Anion Gap 6 (5-15); BUN 9 mg/dL (7-18); BUN/Creat Ratio 9.8 RATIO (10-20); Calcium,Total 8.8 mg/dL (8.5-10.1); Chloride 104 mmol/L (98-107); Creatinine, Serum 0.92 mg/dL (0.55-1.02); EST Glomerular Filtration Rate 75 mL/min (>60); Est Glom Filt Rate - Afr Amer 90 mL/min (>60); Glucose 94 mg/dL (74-106); Potassium 3.5 mmol/L (3.5-5.1); Sodium Level 136 mmol/L (136-145)
[2022-01-25 18:20] LABS: Hemoglobin A1c 5.7 % (3.8-5.6)
[2022-01-25 18:46] LABS: Vitamin D,25 Hydroxy 35.2 ng/mL
== END | disposition home or self-care (01) ==
LOC: MFPLAB 16:04
PROVIDERS: PCP Family Medicine; Referring Provider Family Medicine; Visit Provider Family Medicine
DX: R73.02 Impaired glucose tolerance (oral) (principal); E55.9 Vitamin D deficiency, unspecified
CPT/HCPCS: 36415; 80053; 82306; 83036

== ENCOUNTER → 2022-07-28 | Outpatient (CLI) | payer BC, SELFPAY ==
[2022-07-28 14:56] LABS: Absolute Lymphocyte Count 1.58 X10^3/uL (0.83-4.51); Absolute Neutrophil Count 6.1 X10^3/uL (2.0-7.7); Basophil# 0.03 X10^3/uL; Basophil% 0.3 % (0-1); Eosinophils% 1.2 % (0-5); Hematocrit 45.1 % (37-47); Hemoglobin 14.6 g/dL (12.0-15.0); Lymphocyte # 1.58 X10^3/ul (0.83-4.51); Lymphocyte % 18.3 % (19-41); Mean Corp Hgb Conc 32.4 g/dL (32-36); Mean Corpuscular Hgb 27.7 pg (27.0-32.0); Mean Corpuscular Volume 85.4 fL (81-99); Mean Platelet Vol. 10.2 fl (6.2-12.0); Monocyte# 0.76 X10^3/uL; Monocyte% 8.8 % (0-10); NRBC Flagged by Analyzer 0 % (0-5); Neutrophil # 6.14 X10^3/uL (2.7-7.7); Neutrophil % 71.2 % (47-70); Platelet Count 262 K/mm3 (150-450); RBC Distribution Width CV 12.7 % (11.6-14.6); RBC Distribution Width SD 39.1 fl (35.1-43.9); Red Blood Count 5.28 M/mm3 (4.2-5.4); White Blood Count 8.6 K/mm3 (4.4-11.0)
[2022-07-28 15:03] LABS: ALB/GLOB Ratio 1.1 RATIO (0.9-2.4); AST(SGOT) 21 U/L (15-37); Alanine Aminotransfer ALT/SGPT 82 U/L (13-56); Albumin, Serum 3.8 g/dL (3.2-5.0); Alkaline Phosphatase 108 U/L (45-117); Anion Gap 5 (5-15); BUN 11 mg/dL (7-18); Calcium,Total 9.3 mg/dL (8.5-10.1); Chloride 105 mmol/L (98-107); Creatinine, Serum 0.91 mg/dL (0.55-1.02); EST Glomerular Filtration Rate 75 mL/min (>60); Est Glom Filt Rate - Afr Amer 91 mL/min (>60); Globulin 3.4 g/dL (2.2-4.2); Glucose 128 mg/dL (74-106); Protein, Total 7.2 g/dL (6.4-8.2); Sodium Level 140 mmol/L (136-145)
[2022-08-01 14:46] LABS: H. PYLORI STOOL AG Negative (Negative)
== END | disposition home or self-care (01) ==
LOC: MTLAB 11:43
PROVIDERS: PCP Family Medicine; Referring Provider Nurse Practitioner Family; Visit Provider Nurse Practitioner Family
DX: R11.2 Nausea with vomiting, unspecified (principal); R10.13 Epigastric pain
CPT/HCPCS: 36415; 80053; 82274; 85025; 87338

== ENCOUNTER 2022-08-07 10:07 | Outpatient (CLI) | payer BC, SELFPAY ==
--- NOTE | 2022-08-07 10:09 | US_ITS ---
STUDY: ABDOMINAL ULTRASOUND - RIGHT UPPER QUADRANT REASON FOR VISIT: Female, 32 years old . Right upper quadrant pain. TECHNIQUE: Ultrasound evaluation of the right upper quadrant was performed with real-time and static fay-scale imaging. TECHNICAL QUALITY: Adequate. COMPARISON: None. FINDINGS: Liver: The liver measures 15.3 cm. There is increased echogenicity consistent with fatty infiltration. The bile ducts are within normal limits. There is hepatic color flow. The direction of portal flow is hepatopetal. There is no demonstrated mass lesion. Gallbladder: Normal distended gallbladder. The gallbladder wall measures 1.6 mm. There is a negative sonographic Baker''s sign. There is no pericholecystic fluid. There are no gallstones. Common Bile Duct (C.B.D.): The common bile duct measures 2.8 mm. Pancreas: Normal size of the head, body and tail of the pancreas. There is normal echogenicity of the pancreas. There is no demonstrated pancreatic mass or cyst. Right Kidney: Normal size of the right kidney. The right kidney measures 11.3 cm x 5.3 cm x 4 cm. Normal renal cortex. The right cortex measures 1.1 cm. There is no demonstrated renal mass or cyst. There is no right hydronephrosis. US/Abdomen Limited IMPRESSION: Fatty infiltration of the liver. Electronically Signed: Cleveland Tran MD at 14:58 EST ,
== END 2022-08-07 23:59 | disposition home or self-care (01) ==
LOC: US 10:08
PROVIDERS: PCP Family Medicine; Visit Provider Nurse Practitioner Family
DX: R10.10 Upper abdominal pain, unspecified (principal); K76.0 Fatty (change of) liver, not elsewhere classified
CPT/HCPCS: 76705

== ENCOUNTER → 2022-08-31 | Outpatient (CLI) | payer BC, SELFPAY ==
[2022-08-31 17:47] LABS: Absolute Lymphocyte Count 1.87 X10^3/uL (0.83-4.51); Basophil# 0.03 X10^3/uL; Basophil% 0.3 % (0-1); Eosinophil# 0.05 X10^3/uL; Eosinophils% 0.5 % (0-5); Hematocrit 44.3 % (37-47); Hemoglobin 14.1 g/dL (12.0-15.0); Lymphocyte # 1.87 X10^3/ul (0.83-4.51); Lymphocyte % 17.9 % (19-41); Mean Corp Hgb Conc 31.8 g/dL (32-36); Mean Corpuscular Volume 84.7 fL (81-99); Mean Platelet Vol. 9.9 fl (6.2-12.0); Monocyte# 0.52 X10^3/uL; NRBC Flagged by Analyzer 0 % (0-5); Neutrophil # 7.95 X10^3/uL (2.7-7.7); Neutrophil % 75.9 % (47-70); Platelet Count 302 K/mm3 (150-450); RBC Distribution Width CV 12.5 % (11.6-14.6); Red Blood Count 5.23 M/mm3 (4.2-5.4); White Blood Count 10.5 K/mm3 (4.4-11.0)
[2022-08-31 18:42] LABS: ALB/GLOB Ratio 1.2 RATIO (0.9-2.4); AST(SGOT) 21 U/L (15-37); Alanine Aminotransfer ALT/SGPT 59 U/L (13-56); Albumin, Serum 4.2 g/dL (3.2-5.0); Alkaline Phosphatase 105 U/L (45-117); Anion Gap 4 (5-15); BUN 12 mg/dL (7-18); BUN/Creat Ratio 13.4 RATIO (10-20); Calcium,Total 9.4 mg/dL (8.5-10.1); Chloride 107 mmol/L (98-107); EST Glomerular Filtration Rate 77 mL/min (>60); Est Glom Filt Rate - Afr Amer 93 mL/min (>60); Globulin 3.6 g/dL (2.2-4.2); Glucose 111 mg/dL (74-106); Potassium 4.2 mmol/L (3.5-5.1); Protein, Total 7.8 g/dL (6.4-8.2); Sodium Level 140 mmol/L (136-145)
== END | disposition home or self-care (01) ==
LOC: MFPLAB 16:44
PROVIDERS: PCP Family Medicine; Referring Provider Family Medicine; Visit Provider Family Medicine
DX: R19.5 Other fecal abnormalities (principal); E55.9 Vitamin D deficiency, unspecified; R73.02 Impaired glucose tolerance (oral)
CPT/HCPCS: 36415; 80053; 82306; 83036; 85025

== ENCOUNTER → 2022-11-09 | Outpatient (CLI) | payer BC, SELFPAY ==
--- NOTE | 2022-11-09 07:21 | US_ITS ---
STUDY: ABDOMINAL ULTRASOUND - ELASTOGRAPHY REASON FOR VISIT: Female, 32 years old. Fatty infiltration of the liver. TECHNIQUE: Liver stiffness measurements were obtained on a Celsion RS 85 ultrasound machine using a CA 1-7 probe following the SRU guidelines. 3 measurements were obtained using a 2-D-SWE method. TheIQR/M was 18% suggesting a quality data set. TECHNICAL QUALITY: Adequate. COMPARISON: None. FINDINGS: Liver: Fatty infiltration of the liver. Median liver stiffness measured 6.3 kPa. US/Elastography Parenchyma/Organ IMPRESSION: Liver stiffness measures 6.3 kPa compatible with F2-F3 (Mild to moderate liver fibrosis) Metavir score. Electronically Signed: Cleveland Tran MD at 15:20 EST ,
== END | disposition home or self-care (01) ==
PROVIDERS: PCP Family Medicine; Visit Provider Nurse Practitioner Adult Health
DX: K76.0 Fatty (change of) liver, not elsewhere classified (principal)
CPT/HCPCS: 76981

== ENCOUNTER → 2022-11-28 | Outpatient (CLI) | payer BC, SELFPAY ==
[2022-11-28 18:34] LABS: Hemoglobin A1c 5.9 % (3.8-5.6)
[2022-11-28 18:36] LABS: Vitamin D,25 Hydroxy 44.9 ng/mL
[2022-11-28 18:53] LABS: ALB/GLOB Ratio 0.9 RATIO (0.9-2.4); AST(SGOT) 29 U/L (15-37); Alanine Aminotransfer ALT/SGPT 76 U/L (13-56); Albumin, Serum 3.9 g/dL (3.2-5.0); Alkaline Phosphatase 121 U/L (45-117); Anion Gap 7 (5-15); BUN 13 mg/dL (7-18); BUN/Creat Ratio 14.4 RATIO (10-20); Calcium,Total 9.2 mg/dL (8.5-10.1); Chloride 104 mmol/L (98-107); EST Glomerular Filtration Rate 76 mL/min (>60); Est Glom Filt Rate - Afr Amer 92 mL/min (>60); Globulin 4.3 g/dL (2.2-4.2); Glucose 92 mg/dL (74-106); Potassium 3.9 mmol/L (3.5-5.1); Protein, Total 8.2 g/dL (6.4-8.2); Sodium Level 137 mmol/L (136-145)
== END | disposition home or self-care (01) ==
LOC: MFPLAB 16:21
PROVIDERS: PCP Family Medicine; Referring Provider Family Medicine; Visit Provider Family Medicine
DX: R73.02 Impaired glucose tolerance (oral) (principal); E55.9 Vitamin D deficiency, unspecified
CPT/HCPCS: 36415; 80053; 82306; 83036

== ENCOUNTER → 2022-11-30 | Outpatient (CLI) | payer BC, SELFPAY | END | disposition home or self-care (01) | PROVIDERS: PCP Family Medicine; Visit Provider Nurse Practitioner Family | DX: J02.9 Acute pharyngitis, unspecified (principal) | CPT/HCPCS: 87070 ==

== ENCOUNTER 2023-01-18 07:28 | Day surgery (SDC) | payer BC, SELFPAY ==
--- NOTE | 2023-01-17 | GASB_PTH ---
PATIENT: IVANIA BLANCA LOC: EN U#:[id number] AGE/SX: 32/F ROOM: RE01/18/[address]: Dr. Yasir Doe DO : 1990 BED: DIS: 01/18/2023 SPEC #: [id number] RECD: 01/18/23 10:09 STATUS: BASIA PERRY #: [id number] LE: 01/17/23 00:[address]: Yasir Doe DEPT: SURGICAL PATHOLOGY RECD BY: Venkat Washington ENTERED: 01/18/23 11:58 SP TYPE: Gastric Bx OT DR: Dr. Cong Zaragoza MD Tissues: A - Duodenum, NOS B - Gastric mucous membrane Procedures: Surgery Specimen Level IV HEADER OPERATION: EGD ([facility]), biopsy PRE-OP DIAGNOSIS: LUQ abdominal pain, fatty liver, positive fecal occult TISSUE SUBMITTED: A ? Duodenum biopsy, B ? Gastric antrum biopsy, H. pylori and path MICROSCOPIC DIAGNOSIS A. Duodenum, biopsy: Fragments of gastric mucosa with chronic inflammation. 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 B. Gastric antrum, biopsy: Mild chronic gastritis. See comment. AM:erika 01/19/2023 COMMENT B. The results of immunohistochemistry for Helicobacter pylori will be reported separately ([id number]). MICROSCOPIC DESCRIPTION Slides are reviewed. GROSS DESCRIPTION A - Received in fixative is one container labeled with the patient's name and designated biopsy duodenum. The specimen consists of multiple irregular fragments of light flynn soft tissue that in aggregate measure 1.0 x 0.3 x 0.1 cm. The specimen is totally submitted in one cassette. B - Received in fixative is one container labeled with the patient's name and designated biopsy gastric antrum. The specimen consists of two irregular fragments of light flynn soft tissue that in aggregate measure 0.8 x 0.4 x 0.1 cm. The specimen is totally submitted in one cassette. / SJ:erika 01/18/2023 TC:3 CPT: 82412 x2
[2023-01-18 07:52] LABS: Internal QC Validated? YES +Cl - CLEAR BKGD; Pregnancy, Urine Negative Negative
[2023-01-18 07:53] VITALS: BP 110/72; PULSE 84; RESP 16; TEMP 36.2; O2SAT 100; BMI 36.6
[2023-01-18] MEDS: Lactated Ringers 1,000 ML 15 ML IV (07:56)
--- NOTE | 2023-01-18 08:30 | IMM_PTH ---
PATIENT: IVANIA BLANCA LOC: EN U#:[id number] AGE/SX: 32/F ROOM: RE01/18/[address]: Dr. Yasir Doe DO : 1990 BED: DIS: 01/18/2023 SPEC #: [id number] RECD: 01/18/23 14:36 STATUS: BASIA RENargis #: [id number] LE: 01/18/23 08:[address]: Yasir Doe DEPT: IMMUNOHISTOCHEMISTRY RECD BY: Maya Valdez ENTERED: 01/18/23 14:37 SP TYPE: IMMUNO OTHR DR: Dr. Cong Zaragoza MD Tissues: B - Stomach, NOS Procedures: H Pylori (initial) PHYSICIAN & INSTITUTION [place] [id number] SPECIMEN INFORMATION: Tissue Source: A ? Gastric antrum Clinical Info: LUQ abdominal pain, fatty liver, positive fecal occult Specimen Number: [id number] CPT code: 58732 METHODOLOGY: Deparaffinized sections of prefer/formalin-fixed tissue or PAP/DQ stained slides are incubated with monoclonal/polyclonal antibodies/oligonucleotide probes. Localization is made via biotin free immunoperoxidase method. Appropriate controls are performed and reacted as expected. Results on target cell population are indicated in the following table: RESULTS: ANTIBODY / CLONE RESULT Block A H Pylori (polyclonal) negative These tests were developed and their performance characteristics determined by [facility]. They may not have been cleared or approved by the U.S. Food and Drug Administration. The FDA has determined that such clearance or approval is not necessary. The above immunohistochemical/dualISH markers are ordered and reviewed by the Pathologist. INTERPRETATION: A. Gastric antrum, biopsy: Negative for Helicobacter pylori organisms. AM:erika 01/19/2023
--- NOTE | 2023-01-18 08:35 | HP.PCM_ITS ---
History and Physical Date of Admission: 01/18/23 32 F who presents to the office today for LUQ pain that began in July 2022 when she was experiencing lots of stress, wasn't sleeping well, wasn't eating well. Pain especially with eating, especially spicy foods. Pain was relieved with omeprazole 40 mg daily. Then pain returned when omeprazole decreased to 20 mg daily. She had a positive fecal occult in 07/2022. No melena or hematochezia. Now if she drinks coffee right after eating she vomits the coffee, but ok if she waits to drink it; this is new since the LUQ pain occurred. Had RUQ US which was positive for fatty liver; reports she has often struggled with obesity, and was diagnosed yrs ago with fatty liver. 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 She has a 4 yr old son. 07/28/22 stool occult blood positive, neg H pylori stool, hgb 14.6, AST 21, ALT 82 H 08/07/22 RUQ US: fatty liver 08/31/22 hgb 14.1, hgb a1c 6, AST 21, ALT 59, vitamin D 26 ROS Const Constitutional: No fatigue ENT ENT: No difficulty swallowing Gastro GI: Positive for abdominal pain, diarrhea, nausea/dyspepsia and vomiting; No belching, bloating, change in bowel habits, change in stool character, coffee ground emesis, constipation, cramping, heartburn, difficulty swallowing, feeling full early, excessive flatus, incontinent of stools, Vomiting blood/hematemesis, Blood in stool, loose stools, Black,tarry stools, pain with swallowing or other Musc Musculoskeletal: Positive for back pain and leg pain at night; No joint pain Skin Skin: No yellowing of the eye or itchy eyes Psych Psychiatric: No anxiety and No depression Endo Endocrine: No fatigue Aller/Imm Allergy/Immunologic: No itchy eyes Ayaan/Lymp Hematologic/Lymphatic: No easy bleeding or easy bruising Exam Const General: cooperative and comfortable Nutritional Appearance: obese Orientation: alert, awake and oriented x3 HENMT Head: normal to inspection Eyes Sclera: sclerae normal Resp Effort & Inspection: normal respiratory effort GI Inspection: normal to inspection Palpation: soft, no hepatosplenomegaly, no masses and nontender Skin General: no rashes or lesions noted Neuro Speech: speech normal Gait: normal gait Psych Mood: euthymic mood Quality Reporting Tobacco Screening ([facility] 138) Smoking Status: Never smoker Assessment and Plan Assessment and Plan (1) LUQ abdominal pain: ?Status:?Acute ?Plan: 32 yr old female with LUQ pain which was relieved with omeprazole 40 mg daily, had hemoccult positive stool, negative stool H pylori. Will get EGD to eval for PUD. (2) Fatty liver: ?Status:?Chronic ?Plan: Liver elastography to eval for fibrosis (3) Positive fecal occult blood test: ?Status:?Acute ?Plan: see above ? ? ? Orders: Orders Elastography Parenchyma/Organ Today K76.0 - Fatty (change of) liver, not elsewhere classified ? Medications: New omeprazole 40 mg? PO QAM 90 caps 3RF ? ? I have examined the patient and the H&P has been reviewed. There are no clinical changes since date of exam.
[2023-01-18 08:55] VITALS: BP 110/72; BP 90/52; PULSE 89; RESP 16; TEMP 36.3; O2SAT 96
--- NOTE | 2023-01-18 08:56 | OP.EGD_ITS ---
Patient Name: Eren Siddiqui Procedure Date: 01/18/2023 8:36 AM Date of : 1990 Age: 32 Procedure: Upper GI endoscopy Indications: Epigastric abdominal pain Providers: Yasir Doe DO Referring MD: Cong Zaragoza Medicines: Monitored Anesthesia Care Patient Profile: This is a 32 year old female. Refer to note in patient chart for documentation of history and physical. Patient has symptoms of chronic abdominal cramping and acute epigastric abdominal pain. Complications: No immediate complications. Procedure: Pre-Anesthesia Assessment: - Prior to the procedure, a History and Physical was performed, and patient medications and allergies were reviewed. The risks and benefits of the procedure and the sedation options and risks were discussed with the patient. All questions were answered and informed consent was obtained. Patient identification and proposed procedure were verified by the physician in the pre-procedure area. Mental Status Examination: alert and oriented. Airway Examination: normal oropharyngeal airway and neck mobility. Respiratory Examination: clear to auscultation. CV Examination: normal. Prophylactic Antibiotics: The patient does not require prophylactic antibiotics. Prior Anticoagulants: The patient has taken no previous anticoagulant or antiplatelet agents. After reviewing the risks and benefits, the patient was deemed in satisfactory condition to undergo the procedure. The anesthesia plan was to use monitored anesthesia care (MAC). Immediately prior to administration of medications, the patient was re-assessed for adequacy to receive sedatives. The heart rate, respiratory rate, oxygen saturations, blood pressure, adequacy of pulmonary ventilation, and response to care were monitored throughout the procedure. The physical status of the patient was re-assessed after the procedure. After obtaining informed consent, the endoscope was passed under direct vision. Throughout the procedure, the patient's blood pressure, pulse, and oxygen saturations were monitored continuously. The gastroscope was introduced through the mouth, and advanced to the second part of duodenum. The upper GI endoscopy was accomplished without difficulty. The patient tolerated the procedure well. Scope In: 8:47:02 AM Scope Out: 8:51:28 AM Total Procedure Duration Time 0 hours 4 minutes 26 seconds Findings: The examined esophagus was normal. Patchy mild inflammation characterized by congestion (edema), erosions and erythema was found in the gastric antrum. Biopsies were taken with a cold forceps for histology. Verification of patient identification for the specimen was done. Moderate inflammation was found in the duodenal bulb. Biopsies were taken with a cold forceps for histology. Verification of patient identification for the specimen was done. Estimated blood loss was minimal. Impression: - Normal esophagus. - Gastritis. Biopsied. - Duodenitis. Biopsied. Recommendation: - Discharge patient to home. - Resume previous diet. - Continue present medications. - Await pathology results. Procedure Code(s): --- Professional --- 99395, Esophagogastroduodenoscopy, flexible, transoral; with biopsy, single or multiple CPT copyright 2017 [employer]. All rights reserved. The codes documented in this report are preliminary and upon quality analyst review may be revised to meet current compliance requirements. Yasir Doe DO 01/18/2023 8:56:20 AM This report has been signed electronically. Number of Addenda: 0 Note Initiated On: 01/18/2023 8:36 AM
--- NOTE | 2023-01-18 08:57 | OP.CCLET_ITS ---
01/18/2023 Cong Zaragoza [address] [place] [address] Re : Upper GI endoscopy procedure for Eren Siddiqui Dear Dr. Zaragoza This procedure was performed on January. My impressions and recommendations are as follows: Impressions : - Normal esophagus. - Gastritis. Biopsied. - Duodenitis. Biopsied. Recommendations : - Discharge patient to home. - Resume previous diet. - Continue present medications. - Await pathology results. My findings are described in the full procedure note, which is enclosed. If I can be of further assistance, please feel free to contact me at . Sincerely, Yasir Doe, 01/18/2023 8:56:20 AM This report has been signed electronically.
[2023-01-18 09:00] VITALS: BP 110/72; BP 86/64; PULSE 92; RESP 18; O2SAT 96
[2023-01-18 09:05] VITALS: BP 110/72; BP 99/67; PULSE 97; RESP 18; O2SAT 99
[2023-01-18 09:10] VITALS: BP 110/72; BP 95/67; PULSE 87; RESP 18; TEMP 36.7; O2SAT 99
[2023-01-18 09:27] VITALS: BP 110/72
== END 2023-01-18 09:35 | disposition home or self-care (01) ==
LOC: EN 07:36 → AC 07:37
PROVIDERS: Anesthesiology; PCP Family Medicine; Referring Provider Family Medicine; Visit Provider Internal Medicine Gastroenterology
PROC: 0DJ08ZZ Inspection of Upper Intestinal Tract, Via Natural or Artificial Opening Endoscopic (ICD-10-PCS; CPT 43235; principal; 2023-01-18 08:25)
DX: K29.50 Unspecified chronic gastritis without bleeding (principal); K76.0 Fatty (change of) liver, not elsewhere classified; K29.80 Duodenitis without bleeding; K21.9 Gastro-esophageal reflux disease without esophagitis; Z87.19 Personal history of other diseases of the digestive system; Z79.899 Other long term (current) drug therapy
CPT/HCPCS: 43239; 81025; 88305; 88342; J2405

== ENCOUNTER → 2023-10-01 | Outpatient (CLI) | payer BC, SELFPAY ==
--- OUTSIDE RECORDS SUMMARY | 2023-10-01 10:48 | XMS RPT_ITS | CCD ---
Author Name Unknown Address [address] [place] [address] Organization [facility] Care Team Providers Care Customer Advocate Name Role Phone Laureen Lloyd Unavailable Unavailable PROVIDER, UNKNOWN Unavailable Unavailable FORREST, DIANNE Unavailable Unavailable Dhoopar, Roberto Unavailable Unavailable PROVIDER, UNKNOWN Unavailable Unavailable FORREST, DIANNE Unavailable Unavailable David Yancey Unavailable Unavailable PROVIDER, UNKNOWN Unavailable Unavailable HEADLEY, SANJUANA ISSA Unavailable Unavaila ble Teajose miguel, Soledad Unavailable Unavailable PROVIDER, UNKNOWN Unavailable Unavailable HEADLEY, SANJUANA ISSA Unavailable Unavaila ble Cayla Palacios Unavailable Unavailable PROVIDER, UNKNOWN Unavailable Unavailable HEADLEY, SANJUANA ISSA Unavailable Unavaila ble PEREZ, SARAH Unavailable Unavailable SEDRICK, NITIN K Unavailable Unavailable NO PRIMARY CARE, Unavailable Unavailable XIMENA, YOVANNY Unavailable Unavailable SEDRICK, NITIN K Unavailable Unavailable NO PRIMARY CARE, MD Unavailable Unavailable Problems Active Problems Problem Classification Problem Date Documented Da te Episodic/Chronic Menstrual disorders (2 sources) Dysmenorrhea, unspecified; Translations: [Dysmenorrhea, unspecified] Onset: 05-11-2017 Chronic Other female genital disorders (2 sources) Abnormal uterine and vaginal bleeding, unspecified; Translations: [Abnormal uterine and vaginal bleeding, unspecified] Onset: 10-15-2017 Chronic Past or Other Problems Problem Classification Problem Date Documented Date Episodic/Chronic Administrative/social admission (2 sources) Persons encountering health services in other specified circumstances; Translations: [Persons encountering health services in oth circumstances] Onset: 04-09-2017 Episodic Immunizations and screening for infectious disease (2 sources) Encounter for immunization; Translations: [Encounter for immunization] Onset: 05-11-2017 Episodic Medical examination/evaluatio n (2 sources) Encounter for gynecological examination (general) (routine) without abnormal findings; Translations: [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 Start: 05-20-2018 Patient encounter SARAH PEREZ [facility] Start: 11-07-2017 Ambulatory Cayla Palacios [facility] Start: 10-15-2017 Ambulatory Soledad Espinosa [facility] Start: 09-14-2017 Ambulatory David Yancey [facility] Start: 05-11-2017 Ambulatory Roberto De Guzman [facility] Start: 04-09-2017 Ambulatory Lloyd Garduno [facility] Payers Date Payer Category Payer Unknown [id number] 1990 Unknown [id number] Unknown Unknown [id number] Summary Purpose Family History No Family History Records FoundNo Family History Records FoundNo Family History Records Found Advance Directives No Advanced Directives Records FoundNo Advanced Directives Records FoundNo Advanced Directives Records Found Additional Source Comments INFORMATION SOURCE (unrecogn ized section and content) DATE CREATED AUTHOR AUTHOR'S ORGANIZ ATION 07/20/2018 [facility] DATE CREATED AUTHOR AUTHOR'S ORGANIZ ATION 02/13/2023 [facility] FOR RECORDS PERTAINING TO PATIENTS WHO ARE OR HAVE BEEN ENROLLED IN A CHEMICAL DEPENDENCY/SUBSTANCEABUSE PROGRAM, SOME INFORMATION MAY BE OMITTED. This clinical summary was aggregated from multiple sources. Caution should be exercised in using it in the provision of clinical care. This summary normalizes information from multiple sources, and as a consequence, information in this document may materially change the coding, format and clinical context of patient data. In addition, data may be omitted in some cases. CLINICAL DECISIONS SHOULD BE BASED ON THE PRIMARY CLINICAL RECORDS. [facility]. provides no warranty or guarantee of the accuracy or completeness of information in this document.
[2023-10-01 11:32] LABS: Free T3 3.3 pg/mL (2.18-3.98); T4 Free Direct 1.04 ng/dL (0.76-1.46); Thyroid Stim Hormone (TSH) 1.34 uIU/mL (0.358-3.74)
== END | disposition home or self-care (01) ==
LOC: MFPLAB 09:54
PROVIDERS: PCP Family Medicine; Visit Provider Family Medicine
DX: E01.0 Iodine-deficiency related diffuse (endemic) goiter (principal)
CPT/HCPCS: 36415; 84439; 84443; 84481

== ENCOUNTER → 2023-10-27 | Outpatient (CLI) | payer BC, SELFPAY ==
--- NOTE | 2023-10-27 10:54 | US_ITS ---
INDICATION: GOITER EXAMINATION: Ultrasound US Thyroid (eg thyroid, parathyroid, parotid) TECHNIQUE: Evans scale and color doppler imaging was performed of the thyroid gland. COMPARISON: 07/05/2021 FINDINGS: RIGHT THYROID LOBE: 5.1 x 1.5 x 1.4 cm. Homogeneous echotexture with normal vascularity. [4 small nodules identified, largest 2 are measured. Cystic nodule lower pole measures 5 x 4 x 3 mm and is TI RADS level 1 or benign. Second nodule is solid in the mid pole and measures 6 x 5 x 3 mm, TI RADS level 4 or moderately suspicious. LEFT THYROID LOBE: 4.2 x 1.2 x 1.3 cm. Homogeneous echotexture with normal vascularity. [2 small nodules identified. Larger nodule in the midpole region is solid and mildly hyperechoic, 7 x 6 x 5 mm, TI RADS level 3, mildly suspicious. Second nodule is cystic and measures 3.2 x 2 mm, TI RADS level 1, benign. ISTHMUS: 3.5 mm. No thyroid nodules are present. US/Thyroid IMPRESSION: Bilateral subcentimeter nodules, moderately suspicious nodule on the right measures 6 x 5 x 3 mm and by TI RADS criteria requires no fine-needle aspiration or routine follow-up. Suggest follow-up thyroid ultrasound at one year, 3 years and 5 years from current study. Electronically Signed: Norman Segura MD at 16:59 EST ,
--- OUTSIDE RECORDS SUMMARY | 2023-10-27 10:54 | XMS RPT_ITS | CCD ---
Author Name Unknown Address [address] [place] [address] Organization [facility] Care Team Providers Care Sr. 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 (general) (routine) w/o abn findings] Onset: 05-11-2017 Episodic Results Test Name Value Interpretation Reference Range Facil ity Encounters Encounter Date Encounter Type Care Provider Facility Start: 06-17-2018 Patient encounter YOVANNY BUENO [facility] Start: 05-20-2018 Patient encounter SARAH PEREZ [facility] Start: 11-07-2017 Ambulatory Cayla Palacios [facility] Start: 10-15-2017 Ambulatory Soledad Espinosa [facility] Start: 09-14-2017 Ambulatory David Yancey [facility] Start: 05-11-2017 Ambulatory Roberto De Guzman [facility] Start: 04-09-2017 Ambulatory Lloyd Garduno [facility] Payers Date Payer Category Payer Unknown [id number] 1990 Unknown [id number] Unknown Unknown [id number] Summary Purpose Family History No Family History Records FoundNo Family History Records FoundNo Family History Records Found Advance Directives No Advanced Directives Records FoundNo Advanced Directives Records FoundNo Advanced Directives Records Found Additional Source Comments INFORMATION SOURCE (unrecogn ized section and content) DATE CREATED AUTHOR AUTHOR'S ORGANIZ ATION 07/20/2018 [facility] DATE CREATED AUTHOR AUTHOR'S ORGANIZ ATION 02/13/2023 [facility] FOR RECORDS PERTAINING TO PATIENTS WHO ARE [...] BE BASED ON THE PRIMARY CLINICAL RECORDS. [employer] [facility]. provides no warranty or guarantee of the accuracy or completeness of information in this document.
== END | disposition home or self-care (01) ==
PROVIDERS: PCP Family Medicine; Referring Provider Nurse Practitioner Family; Visit Provider Nurse Practitioner Family
DX: E01.0 Iodine-deficiency related diffuse (endemic) goiter (principal)
CPT/HCPCS: 76536

== ENCOUNTER → 2023-10-30 | Outpatient (CLI) | payer BC, SELFPAY ==
--- NOTE | 2023-10-30 08:59 | BI_ITS ---
MAMMOGRAPHY - BILATERAL DIAGNOSTIC REASON FOR EXAM: Female, 33 years old. Right retroareolar pain. PERTINENT HISTORY: Non-contributory. TECHNIQUE: Digital bilateral breast yuri (3D mammographic acquisition) in the CC and MLO projections. 2-D mediolateral oblique (MLO) and craniocaudad (CC) views of both breasts were obtained. CAD: Full Field Digital Mammography with Computer Added Detection was performed. COMPARISON: None. Baseline examination. FINDINGS: Breast Composition: There are scattered areas of fibroglandular density. There are no dominant masses or suspicious calcifications. No other significant abnormalities are identified. BI/DIAG MAMM W/CAD, BILAT IMPRESSION: Negative diagnostic mammogram. With the patient''s history of a right retroareolar pain, correlation with ultrasound is recommended. ASSESSMENT CATEGORY: BIRADS Category 0: Incomplete. Need additional imaging evaluation. A letter regarding these results will be sent to the patient by the facility within 30 days. Approximately 10% of breast cancers are not detected by mammography. A normal mammogram should not delay biopsy of a clinically suspicious abnormality. Electronically Signed: Cleveland Tran MD at 11:16 EST ,
--- OUTSIDE RECORDS SUMMARY | 2023-10-30 09:42 | XMS RPT_ITS | CCD ---
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 (general) (routine) w/o abn findings] Onset: 05-11-2017 Episodic Results Test Name Value Interpretation Reference Range Facil ity Encounters Encounter Date Encounter Type Care Provider Facility Start: 06-17-2018 Patient encounter YOVANNY BUENO [facility] Start: 05-20-2018 Patient encounter SARAH PEREZ [facility] Start: 11-07-2017 Ambulatory Cayla Palacios [facility] Start: 10-15-2017 Ambulatory Soledad Espinosa [facility] Start: 09-14-2017 Ambulatory David Yancey [facility] Start: 05-11-2017 Ambulatory Roberto De Guzman [facility] Start: 04-09-2017 Ambulatory Lloyd Garduno [facility] Payers Date Payer Category Payer Unknown [id number] 1990 Unknown [id number] Unknown Unknown [id number] Summary Purpose Family History No Family History Records FoundNo Family History Records FoundNo Family History Records Found Advance Directives No Advanced Directives Records FoundNo Advanced Directives Records FoundNo Advanced Directives Records Found Additional Source Comments INFORMATION SOURCE (unrecogn ized section and content) DATE CREATED AUTHOR AUTHOR'S ORGANIZ ATION 07/20/2018 [facility] DATE CREATED AUTHOR AUTHOR'S ORGANIZ ATION 02/13/2023 [facility] FOR RECORDS PERTAINING TO PATIENTS WHO ARE [...] BE BASED ON THE PRIMARY CLINICAL RECORDS. [facility] [employer] [facility]. provides no warranty or guarantee of the accuracy or completeness of information in this document.
--- NOTE | 2023-10-30 10:02 | US_ITS ---
STUDY: ULTRASOUND BREAST - RIGHT REASON FOR EXAM: Female, 33 years old. Right breast and right axillary pain. TECHNIQUE: Axial and longitudinal images of the RIGHT breast were performed with a high resolution ultrasound transducer. # OF IMAGES: 28 COMPARISON: Comparison is made with prior mammogram done earlier today. FINDINGS: RIGHT Breast: The lateral aspect of the right breast as well as the right axillary was examined with ultrasound. No sonographic abnormality is seen. US/Breast Limited Unilateral IMPRESSION: No sonographic abnormality is seen. ASSESSMENT CATEGORY: BIRADS Category 1: Negative. A letter regarding these results will be sent to the patient by the facility within 30 days. Electronically Signed: Cleveland Tran MD at 12:17 EST ,
== END | disposition home or self-care (01) ==
PROVIDERS: PCP Family Medicine; Referring Provider Nurse Practitioner Family; Visit Provider Nurse Practitioner Family
DX: N64.4 Mastodynia (principal)
CPT/HCPCS: 76642; 77062; 77066; G0279

== ENCOUNTER → 2024-01-11 | Outpatient (CLI) | payer BC, SELFPAY ==
[2024-01-11 17:44] LABS: Absolute Lymphocyte Count 2.38 X10^3/uL (0.83-4.51); Absolute Neutrophil Count 5.9 X10^3/uL (2.0-7.7); Basophil# 0.03 X10^3/uL; Basophil% 0.3 % (0-1); Eosinophil# 0.11 X10^3/uL; Eosinophils% 1.2 % (0-5); Hemoglobin 14.4 g/dL (12.0-15.0); Lymphocyte # 2.38 X10^3/ul (0.83-4.51); Lymphocyte % 26.6 % (19-41); Mean Corp Hgb Conc 32.7 g/dL (32-36); Mean Corpuscular Hgb 27.4 pg (27.0-32.0); Mean Corpuscular Volume 83.7 fL (81-99); Mean Platelet Vol. 10.1 fl (6.2-12.0); Monocyte% 5.6 % (0-10); NRBC Flagged by Analyzer 0 % (0-5); Neutrophil # 5.92 X10^3/uL (2.7-7.7); Neutrophil % 66.2 % (47-70); Platelet Count 310 K/mm3 (150-450); RBC Distribution Width CV 12.8 % (11.6-14.6); RBC Distribution Width SD 38.6 fl (35.1-43.9); Red Blood Count 5.26 M/mm3 (4.2-5.4)
[2024-01-11 17:54] LABS: ALB/GLOB Ratio 0.9 RATIO (0.9-2.4); AST(SGOT) 40 U/L (15-37); Alanine Aminotransfer ALT/SGPT 74 U/L (13-56); Albumin, Serum 3.7 g/dL (3.2-5.0); Alkaline Phosphatase 97 U/L (45-117); Anion Gap 5 (5-15); BUN 19 mg/dL (7-18); BUN/Creat Ratio 23.4 RATIO (10-20); Calcium,Total 9.3 mg/dL (8.5-10.1); Chloride 106 mmol/L (98-107); Cholesterol 197 mg/dL (200); Creatinine, Serum 0.81 mg/dL (0.55-1.02); EST Glomerular Filtration Rate 85 mL/min (>60); Est Glom Filt Rate - Afr Amer 103 mL/min (>60); Glucose 153 mg/dL (74-106); High Density Lipoprotein 29 mg/dL; Potassium 3.9 mmol/L (3.5-5.1); Protein, Total 7.7 g/dL (6.4-8.2); Sodium Level 137 mmol/L (136-145); Triglycerides 258 mg/dL; Very Low Density Lipoprotein 52 mg/dL (5-40); Vitamin D,25 Hydroxy 38.3 ng/mL
[2024-01-11 18:29] LABS: Hemoglobin A1c 6.3 % (3.8-5.6)
== END | disposition home or self-care (01) ==
LOC: MFPLAB 16:20
PROVIDERS: PCP Family Medicine; Visit Provider Family Medicine
DX: E55.9 Vitamin D deficiency, unspecified (principal); R73.02 Impaired glucose tolerance (oral)
CPT/HCPCS: 36415; 80053; 80061; 82306; 83036; 85025

== ENCOUNTER → 2024-06-03 | Outpatient (CLI) | payer BC, SELFPAY ==
[2024-06-03 17:51] LABS: Absolute Lymphocyte Count 2.35 X10^3/uL (0.83-4.51); Absolute Neutrophil Count 7.3 X10^3/uL (2.0-7.7); Basophil# 0.07 X10^3/uL; Basophil% 0.7 % (0-1); Eosinophil# 0.11 X10^3/uL; Eosinophils% 1.1 % (0-5); Hematocrit 44.8 % (37-47); Hemoglobin 14.6 g/dL (12.0-15.0); Lymphocyte # 2.35 X10^3/ul (0.83-4.51); Lymphocyte % 22.6 % (19-41); Mean Corp Hgb Conc 32.6 g/dL (32-36); Mean Corpuscular Hgb 26.7 pg (27.0-32.0); Mean Corpuscular Volume 81.9 fL (81-99); Mean Platelet Vol. 10.7 fl (6.2-12.0); Monocyte# 0.57 X10^3/uL; Monocyte% 5.5 % (0-10); NRBC Flagged by Analyzer 0 % (0-5); Neutrophil # 7.28 X10^3/uL (2.7-7.7); Neutrophil % 69.8 % (47-70); Platelet Count 304 K/mm3 (150-450); RBC Distribution Width CV 12.9 % (11.6-14.6); RBC Distribution Width SD 37.8 fl (35.1-43.9); Red Blood Count 5.47 M/mm3 (4.2-5.4); White Blood Count 10.4 K/mm3 (4.4-11.0)
[2024-06-03 18:15] LABS: Hemoglobin A1c 6.7 % (3.8-5.6)
[2024-06-03 18:25] LABS: AST(SGOT) 19 U/L (15-37); Alanine Aminotransfer ALT/SGPT 46 U/L (13-56); Alkaline Phosphatase 102 U/L (45-117); Anion Gap 8 (5-15); BUN 13 mg/dL (7-18); BUN/Creat Ratio 13.2 RATIO (10-20); Calcium,Total 9.6 mg/dL (8.5-10.1); Chloride 103 mmol/L (98-107); Cholesterol 211 mg/dL (200); Creatinine, Serum 0.99 mg/dL (0.55-1.02); EST Glomerular Filtration Rate 68 mL/min (>60); Est Glom Filt Rate - Afr Amer 82 mL/min (>60); Globulin 4.1 g/dL (2.2-4.2); Glucose 162 mg/dL (74-106); High Density Lipoprotein 36 mg/dL; Protein, Total 8.1 g/dL (6.4-8.2); Sodium Level 137 mmol/L (136-145); Triglycerides 264 mg/dL; Very Low Density Lipoprotein 53 mg/dL (5-40)
[2024-06-03 18:48] LABS: Microalbumin,Random Urine 12.3 mg/L (NO RANGE EST.); Microalbumin:Creatinine Ratio 6.5 mg/g CRE (<30 mg/g CRE)
[2024-06-03 23:08] LABS: Vitamin D,25 Hydroxy 26.1 ng/mL
== END | disposition home or self-care (01) ==
PROVIDERS: PCP Family Medicine; Referring Provider Family Medicine; Visit Provider Family Medicine
DX: E11.9 Type 2 diabetes mellitus without complications (principal); E55.9 Vitamin D deficiency, unspecified
CPT/HCPCS: 36415; 80053; 80061; 82043; 82306; 82570; 83036; 85025

== ENCOUNTER → 2024-11-24 | Outpatient (CLI) | payer BC, SELFPAY ==
--- NOTE | 2024-11-24 15:24 | US_ITS ---
PROCEDURE: THYROID 11/24/2024 REASON FOR EXAM: 34-year-old female, THYROMEGALY TECHNIQUE: Thyroid ultrasound COMPARISON: Thyroid ultrasound 10/28/2023. FINDINGS: Right thyroid lobe measures 5.1 x 1.6 x 1.6 cm. Left thyroid lobe measures 4.7 x 1.2 x 0.9 cm. Isthmus thickness is0.4 cm. Thyroid Size: Normal Background Echotexture: Normal Thyroid Nodules: There are a few bilateral colloid cysts and additional tiny nodules, which do not meet criteria for dedicated follow-up. Other: None. US/Thyroid IMPRESSION: Normal thyroid ultrasound with several benign cysts/nodules. Further dedicated imaging not indicated by ACR TI-RADS criteria. Reading Location: [id number]
== END | disposition home or self-care (01) ==
LOC: US 15:23
PROVIDERS: PCP Family Medicine; Referring Provider Family Medicine; Visit Provider Family Medicine
DX: E01.0 Iodine-deficiency related diffuse (endemic) goiter (principal)
CPT/HCPCS: 76536

== ENCOUNTER → 2024-11-25 | Outpatient (CLI) | payer BC, SELFPAY ==
[2024-11-25 17:46] LABS: Absolute Lymphocyte Count 2.06 X10^3/uL (0.83-4.51); Absolute Neutrophil Count 5.3 X10^3/uL (2.0-7.7); Basophil# 0.04 X10^3/uL; Basophil% 0.5 % (0-1); Eosinophil# 0.09 X10^3/uL; Eosinophils% 1.1 % (0-5); Hematocrit 43.7 % (37-47); Hemoglobin 14.6 g/dL (12.0-15.0); Lymphocyte # 2.06 X10^3/ul (0.83-4.51); Lymphocyte % 25.9 % (19-41); Mean Corp Hgb Conc 33.4 g/dL (32-36); Mean Corpuscular Hgb 27.7 pg (27.0-32.0); Mean Corpuscular Volume 82.8 fL (81-99); Mean Platelet Vol. 10.5 fl (6.2-12.0); Monocyte# 0.47 X10^3/uL; Monocyte% 5.9 % (0-10); NRBC Flagged by Analyzer 0 % (0-5); Neutrophil # 5.26 X10^3/uL (2.7-7.7); Neutrophil % 66.3 % (47-70); Platelet Count 281 K/mm3 (150-450); RBC Distribution Width CV 12.9 % (11.6-14.6); RBC Distribution Width SD 38.3 fl (35.1-43.9); Red Blood Count 5.28 M/mm3 (4.2-5.4); White Blood Count 7.9 K/mm3 (4.4-11.0)
[2024-11-25 20:01] LABS: Microalbumin,Random Urine 25.4 mg/L (NO RANGE EST.); Microalbumin:Creatinine Ratio 127.6 mg/g CRE
[2024-11-25 22:18] LABS: ALB/GLOB Ratio 1.4 RATIO (0.9-2.4); AST(SGOT) 23 U/L (<=31); Alanine Aminotransfer ALT/SGPT 41 U/L (<=34); Albumin, Serum 4.5 g/dL (3.5-5.0); Alkaline Phosphatase 104 U/L (35-104); Anion Gap 13 (5-15); BUN 12 mg/dL (4-19); BUN/Creat Ratio 16.1 RATIO (10-20); Calcium,Total 8.4 mg/dL (7.6-11.0); Carbon Dioxide 22.2 mmol/L (21.0-32.0); Chloride 101 mmol/L (98-108); Cholesterol 183 mg/dL (<=200); Creatinine, Serum 0.74 mg/dL (0.70-1.20); EST Glomerular Filtration Rate 108 (>60); Globulin 3.2 g/dL (2.2-4.2); Glucose 126 mg/dL (70-99); High Density Lipoprotein 30 mg/dL; Low Density Lipoprotein Calc. 122 mg/dL; Potassium 4.1 mmol/L (3.3-5.1); Protein, Total 7.7 g/dL (5.9-8.4); Sodium Level 136 mmol/L (133-145); Total Bilirubin 0.42 mg/dL (0.00-1.30); Triglycerides 153 mg/dL; Very Low Density Lipoprotein 31 mg/dL (5-40); Vitamin D,25 Hydroxy 24.7 ng/mL (30-100); cholesterol:hdl ratio screen 6.04
== END | disposition home or self-care (01) ==
LOC: MFPLAB 15:35
PROVIDERS: PCP Family Medicine; Referring Provider Family Medicine; Visit Provider Family Medicine
DX: E11.9 Type 2 diabetes mellitus without complications (principal)
CPT/HCPCS: 36415; 80053; 80061; 82043; 82306; 82570; 83036; 85025

== ENCOUNTER → 2025-05-08 | Outpatient (CLI) | payer BC, SELFPAY ==
[2025-05-08 18:02] LABS: Hematocrit 45.8 % (37-47); Hemoglobin 15.0 g/dL (12.0-15.0); Immature Granulocytes Count 0.050 X10^3/uL (0.0-0.0); Mean Corp Hgb Conc 32.8 g/dL (32-36); Mean Corpuscular Volume 83.1 fL (81-99); Mean Platelet Vol. 10.1 fl (6.2-12.0); NRBC Flagged by Analyzer 0 % (0-5); Platelet Count 349 K/mm3 (150-450); RBC Distribution Width CV 13.2 % (11.6-14.6); RBC Distribution Width SD 40.3 fl (35.1-43.9); Red Blood Count 5.51 M/mm3 (4.2-5.4); White Blood Count 12.9 K/mm3 (4.4-11.0)
[2025-05-08 18:37] LABS: AST(SGOT) 18 U/L (<=31); Alanine Aminotransfer ALT/SGPT 55 U/L (<=34); Albumin, Serum 4.5 g/dL (3.5-5.0); Alkaline Phosphatase 104 U/L (35-104); Anion Gap 12 (5-15); BUN 14 mg/dL (4-19); BUN/Creat Ratio 15.8 RATIO (10-20); Calcium,Total 9.1 mg/dL (7.6-11.0); Carbon Dioxide 22.3 mmol/L (21.0-32.0); Chloride 103 mmol/L (98-108); Cholesterol 191 mg/dL (<=200); Globulin 3.4 g/dL (2.2-4.2); Glucose 126 mg/dL (70-99); Low Density Lipoprotein Calc. 123 mg/dL; Potassium 4.1 mmol/L (3.3-5.1); Triglycerides 161 mg/dL; Very Low Density Lipoprotein 32 mg/dL (5-40); cholesterol:hdl ratio screen 5.40
== END | disposition home or self-care (01) ==
LOC: MTLAB 16:23
PROVIDERS: PCP Family Medicine; Referring Provider Family Medicine; Visit Provider Family Medicine
DX: E11.9 Type 2 diabetes mellitus without complications (principal)
CPT/HCPCS: 36415; 80053; 80061; 83036; 85025